=== PATIENT | female | born 1985 | race Caucasian/White ===

== ENCOUNTER → 2023-11-25 | Outpatient (CLI) | payer BC ==
--- NOTE | 2023-11-29 12:02 | MR ---
EXAMINATION TYPE: MR lumbar spine wo/w con DATE OF EXAM: 11/25/2023 6:50 PM COMPARISON: NONE HISTORY: Scoliosis. Low back pain that down back of left and right thigh CONTRAST: The patient was injected with 7 mL intravenous Gadavist gadolinium contrast. Multiplanar, MultiSpin echo imaging of the lumbar spine was performed. L1-L2: Normal disc appearance without desiccation. No herniation, protrusion or disc bulging. No ca nal stenosis is present. Foramina are patent bilaterally. L2-L3: Normal disc appearance without desiccation. No herniation, protrusion or disc bulging. No ca nal stenosis is present. Foramina are patent bilaterally. L3-L4: Moderate decreased signal loss 5 compatible with degenerative disc disease. Mild posterior dis c bulge with minimal effacement of ventral thecal sac. No evidence of herniation or central stenosis. No evidence for foraminal encroachment or lateral recess stenosis. L4-L5: Normal disc appearance without desiccation. No herniation, protrusion or disc bulging. No ca nal stenosis is present. Foramina are patent bilaterally. L5-S1: Severe disc desiccation with vacuum disc. Mild posterior disc bulge. No herniation, protrusion or central stenosis. This arthropathy resulting in left greater than right neural foraminal encroach ment. Lumbar segments are intact. Modic type II signal on the T1 and T2-weighted imaging at the L5-S1 endpl ates. Mild curvature convex to the left. No paraspinal masses are identified. Conus medullaris has a normal appearance. No pathologic enhancement seen. IMPRESSION: 1. Degenerative disc disease with mild disc bulging is noted. 2. Neural foraminal encroachment at L5-S1. 3. Modic type II changes at L5-S1.
== END | disposition home or self-care (01) ==
LOC: MERGE 11-18 18:30 → RADMRIMAIN 17:55
PROVIDERS: ATTEND Family Medicine
DX: M51.36 Other intervertebral disc degeneration, lumbar region (principal); M41.9 Scoliosis, unspecified; M48.07 Spinal stenosis, lumbosacral region; M51.87 Other intervertebral disc disorders, lumbosacral region
CPT/HCPCS: 72158; A9585